=== PATIENT | male | born 1955 | race Caucasian/White ===

== ENCOUNTER 2019-04-28 17:21 | Emergency (ER) | payer OTHER ==
[~2019-04-28] VITALS: Ht 170.2 cm; Wt 86.5 kg
[2019-04-28] MEDS ORDERED: LOSA100T14 PO (17:29)
[2019-04-28] MEDS ORDERED: HYDR25TA6 PO (17:29)
--- NOTE | 2019-04-28 17:33 | NUR ---
THIS IS A 63 YO MALE WHO PRESENTS TO THE ER BY KENNEDI AFTER HAVING A TOTAL OF 4 SYNCOPAL EPISODES TODAY, WITNESSED BY FRIENDS. PT DONATED BLOOD TODAY, BUT HAS DONATED MX TIMES W/O ISSUES. PT HAS ALSO NOTICED HIS BP TRENDING DOWN X 2 DAYS. BP 60'S SBP AND 1ST DEGREE HEART BLOCK NOTED BY EMS VETERINARY TECHNOLOGIST. FS 121. PT NSR 80'S ON MATHEMATICS INSTRUCTOR. PT AO X 4. SKIN PWD. RESP EVEN AND UNLABORED. CALL LIGHT WITHIN REACH. WILL CONT TO MONITOR PT.
[2019-04-28 18:06] LABS: BASOPHILS # (AUTO) 0.01 x10^3/uL (0-0.1); BASOPHILS % (AUTO) 0 % (0-1); EOSINOPHILS # (AUTO) 0.04 x10^3/uL (0-0.4); EOSINOPHILS % (AUTO) 0 % (1-7); LYMPHOCYTES # (AUTO) 1.25 x10^3/uL (1-3.4); LYMPHOCYTES % (AUTO) 13 % (22-44); MD NO; MEAN CORPUSCULAR HEMOGLOBIN 31.9 pg (27.5-34.5); MEAN CORPUSCULAR VOLUME 96.7 fL (81-97); MEAN PLATELET VOLUME 8.6 fL (7.4-10.4); MONOCYTES # (AUTO) 0.35 x10^3/uL (0.2-0.8); MONOCYTES % (AUTO) 4 % (2-9); NEUTROPHILS # (AUTO) 8.21 x10^3/uL (1.8-6.8); NEUTROPHILS % (AUTO) 83 % (42-75); PLATELET COUNT 191 x10^3/uL (130-400); RED BLOOD COUNT 4.13 x10^6/uL (4.38-5.82); RED CELL DISTRIBUTION WIDTH 15.4 % (9.4-14.8)
[2019-04-28 18:07] LABS: ALBUMIN 3.4 g/dL (3.4-5.0); ANION GAP 8 mmol/L (5-15); CALCIUM 8.2 mg/dL (8.5-10.1); CHLORIDE 105 mmol/L (98-107)
[2019-04-28 18:13] LABS: ALANINE AMINOTRANSFERASE 34 U/L (12-78); ALKALINE PHOSPHATASE 54 U/L (45-117); BILIRUBIN,TOTAL 0.5 mg/dL (0.2-1.0); CREATININE 1.34 mg/dL (0.7-1.3); TOTAL PROTEIN 7.4 g/dL (6.4-8.2); TROPONIN I 0.029 ng/mL (0.000-0.045)
[2019-04-28 18:15] LABS: INTERNATIONAL NORMALIZED RATIO 1.09 (0.93-1.1); PROTHROMBIN TIME 11.4 Seconds (9.6-11.5)
--- NOTE | 2019-04-28 18:30 | NUR ---
PT CURRENTLY RESTING ON GURNEY. NAD NOTED. SKIN PWD. RESP EVEN AND UNLABORED. PT AWARE THAT WE ARE WAITING FOR RECHECK BY ERMD. PT DENIES PAIN/NEEDS AT THIS TIME. PT ON CONT BP, CARDIAC AND O2 MONITORS. CALL LIGHT WITHIN REACH. WILL CONT TO MONITOR PT.
[2019-04-28 19:07] VITALS: BP 134/45
== END 2019-04-28 19:08 | disposition home or self-care (01) ==
LOC: ED 19:02
DX: R55 Syncope and collapse (principal); I10 Essential (primary) hypertension; R42 Dizziness and giddiness
CPT/HCPCS: 36415; 80053; 84484; 85025; 85610; 85730; 93005; 99284